=== PATIENT | male | born 1930 | race Caucasian/White ===

== ENCOUNTER 2016-09-23 15:39 | Emergency (ER) | payer MEDICARE, OTHER ==
--- NOTE | ~2016-09-23 | CN ---
Consultation Report [facility] [address] [address] [facility] [place]. [address] NAME: LAURYN KAM JR : 34 STATUS : [facility] [id number] AGE: 86 ADM/REG DATE : 09/23/16 MR#: [id number] REPORT SERV DATE: 09/23/16 DICTATED BY: HAYES HECTOR DATE: 09/23/16 REPORT STATUS : Draft TRANSCRIBED BY: MODBright DATE: 09/23/16 CONSULTATION NOTE DATE OF CONSULTATION: 09/23/2016 REASON FOR CONSULTATION: Evaluation for bilateral lower extremity ischemia. BRIEF HISTORY: The patient is an 86-year-old gentleman with a past medical history significant for chronic atrial fibrillation, atherosclerosis of the lower extremities, and intracranial hemorrhage who is well-known to me. I have actually performed two percutaneous thromboembolectomies of the right lower extremity within the past month. He comes in today because his daughter was concerned about the appearance of his feet. He has had some chronic numbness along the plantar aspects of his feet. He says that they do not hurt him. His right leg does not bother him the way that it did before we performed an embolectomy on him. He has had some swelling. He has recently gone home and has restarted his anticoagulation per the patient. Apparently, this was okayed by Dr. Ramirez. He denies any new symptoms. He has actually scheduled to see me with an ultrasound next week according to his daughter. PAST MEDICAL HISTORY: Hypertension, atrial fibrillation, intracranial hemorrhage, and skin cancer. PAST SURGICAL HISTORY: Includes skin cancer removal, left upper extremity embolectomy, right lower extremity embolectomy x2, and knee replacement. SOCIAL HISTORY: He denies tobacco, alcohol, or drug use. MEDICATIONS: Documented on the chart and were reviewed. ALLERGIES: NONE. FAMILY HISTORY: Noncontributory. REVIEW OF SYSTEMS: A complete review of systems was performed and is negative with the exception of the aforementioned findings. PHYSICAL EXAMINATION: VITAL SIGNS: Documented on the chart and were reviewed. GENERAL: The patient is awake, alert, oriented, in no apparent distress. HEENT AND NECK: His head and neck examination is benign without any carotid bruits. HEART: Regular rate and rhythm. LUNGS: Clear. ABDOMEN: Soft, nontender, and nondistended with a nonaneurysmal aorta. Consultation Report [facility] [address] [address] NAME: LAURYN KAM JR : 34 STATUS : [facility]#: [id number] AGE: 86 ADM/REG DATE : 09/23/16 MR#: [id number] REPORT SERV DATE: 09/23/16 DICTATED BY: HAYES HECTOR DATE: 09/23/16 REPORT STATUS : Draft TRANSCRIBED BY: MODBright DATE: 09/23/16 EXTREMITIES: He has a normal complement of upper extremity pulses without any significant edema or ischemic ulcerations. He has palpable femoral pulses. I do not appreciate popliteal or pedal pulses. His left foot is a little cooler than the right. It is also a little paler than the right. He has mild right lower extremity edema, primarily within his foot. He has no ischemic ulcerations. He has good motor function of his feet and legs. NEUROLOGIC: His neurological examination is grossly nonfocal. MUSCULOSKELETAL: His musculoskeletal examination reveals no flexion contractures. LABORATORY DATA: There are no noninvasive studies for me to review at this time. His CT and MRI were reviewed from [place]. His intracranial hemorrhages are improving. ASSESSMENT AND PLAN: It looks like this gentleman has numbness in the plantar aspect of his feet. He says that this is not new. He does not have any new pain. The reason for his admission is more or less because of his daughter's concern about the appearance of his feet. By his old ultrasounds, we note that he has atherosclerosis of his lower extremities. It is possible that he has had an embolus to his left lower extremity also. I talked about getting an ultrasound to assess this. I do not think that there any interventional options on his right lower extremity. We could potentially perform an embolectomy on the left side, but I am hesitant to embark on an intervention when his symptoms are very minimal. In fact, he says that his legs do not really bother him. He is scheduled to have an ultrasound and see me next week according to the patient's daughter. I think it is reasonable just to get this study then. If something changes, I can certainly see him earlier. GREY TENDER/CHEIKH Hayes Hector M.D. / [id number] CC: Dean Cantu M.D.
[2016-09-23 15:16] LABS: BASOPHILS 0.3 %; BASOPHILS ABSOLUTE 0.02 10/3/uL (0.0-0.16); EOSINOPHILS 4.3 %; HEMATOCRIT 34.2 % (40.0-51.0); HEMOGLOBIN 11.1 g/dL (13.6-17.8); IMMATURE GRANULOCYTES 0.1 %; IMMATURE GRANULOCYTES ABSOLUTE 0.01 10/3/uL (0.0-0.11); LYMPHOCYTES 18.9 %; LYMPHOCYTES ABSOLUTE 1.32 10/3/uL (0.67-4.30); MANUAL DIFF NO %; MEAN CORPUS HGB CONC 32.5 g/dL (32.0-36.0); MEAN CORPUSCULAR HEMOGLOB 27.4 pg (26.0-34.0); MEAN CORPUSCULAR VOLUME 84.4 fL (80-100); MEAN PLATELET VOLUME 9.1 fL (9.2-13.0); MONOCYTES ABSOLUTE 0.84 10/3/uL (0.21-1.20); NEUTROPHILS 64.4 %; PLATELET COUNT 312 10/3/uL (150-400); RBC DISTRIBUTION WIDTH 20.2 % (12.0-16.0); RED CELL COUNT 4.05 10/6/uL (4.7-6.1)
[2016-09-23 15:29] LABS: INTERNATIONAL NORMAL RATI 1.3 UNITS (-); PARTIAL THROMBO TIME 30.9 SEC (22.5-37.2); PROTIME (NOT ORD) 16.2 SEC (12.0-14.5)
[2016-09-23 15:36] LABS: BUN (BLOOD UREA NITROGEN) 18 MG/DL (6-23); CALCIUM, SERUM 8.6 MG/DL (8.5-10.4); CHEST PAIN PROFILE TAT 0 Hrs 26 Mins; CHLORIDE, SERUM 102 MMOL/L (96-112); CO2 (CARBON DIOXIDE) 31 MMOL/L (24-34); CREATININE 0.76 MG/DL (0.70-1.30); GFR AFRICAN AMERICAN 97 ML/MIN (>=60); GFR NON AFRICAN AMERICAN 84 ML/MIN (>=60); GLUCOSE, SERUM 105 MG/DL (60-99); POTASSIUM, SERUM 4.7 MMOL/L (3.5-5.3); SODIUM, SERUM 139 MMOL/L (135-148); TROPONIN I <0.02 NG/ML (<0.05)
[~2016-09-23 15:39] MED LIST: ATEN25 PO; ATEN50 PO; BENICAR20 PO; C5 PO; CALTRA600D PO; CENTRUM PO; CENTRUM TAB1 TAB PO; COZ50 PO; DOCUSATE PO; DSS PO; HALF81 PO; HYPOTEARS OPH; LOVENOX80 SC; MULTIVITAMI1; OS500+D PO; OXYIR5 MG PO; PRILO PO; VITAMIN B-625 MG OR; ZOL100 PO; ZOLOFT25 MG PO; [UNRECOGNIZED DRUG - OTHER]; [UNRECOGNIZED DRUG - OTHER] PO
[2016-11-23] MEDS ORDERED: DSS PO (23:17)
[2016-11-23] MEDS ORDERED: ASAB PO (23:17)
[2016-11-23] MEDS ORDERED: C5 PO (23:17)
[2016-12-02] MEDS ORDERED: AUG875 PO (10:44)
[2016-12-02] MEDS ORDERED: MIRALAX POWDER1 PKT PO (11:12)
[2016-12-02] MEDS ORDERED: FLORASTOR250 MG PO ×2 (11:13→11:16)
== END 2016-09-23 17:47 | disposition home or self-care (01) ==
LOC: ER 15:39
PROVIDERS: Emergency Medicine
DX: I73.9 Peripheral vascular disease, unspecified (principal); I48.91 Unspecified atrial fibrillation; Z88.5 Allergy status to narcotic agent; Z79.899 Other long term (current) drug therapy
CPT/HCPCS: 71010; 80048; 83735; 84484; 85025; 85610; 85730; 99285